=== PATIENT | female | born 1995 | race Caucasian/White ===

== ENCOUNTER 2017-04-24 14:13 | Emergency (ER) | payer OTHER ==
[~2017-04-24] VITALS: Ht 165.1 cm; Wt 58.1 kg
[2017-04-24] MEDS ORDERED: IBUPROFEN 600 MG TABLET PO ONE (14:45)
[2017-04-24] MEDS ORDERED: IBUPROFEN 600 MG TABLET ONE (15:11)
[2017-04-24 15:37] LABS: *URINE HCG, QUAL NEGATIVE (NEGATIVE)
[2017-04-24 15:38] LABS: *BILIRUBIN,URIN NEGATIVE (NEGATIVE); *BLOOD, URINE 2+ (NEGATIVE); *CLARITY,URINE CLEAR (CLEAR); *COLOR,URINE LIGHT YELLOW (YELLOW); *KETONES,URINE NEGATIVE (NEGATIVE); *PROTEIN,URINE NEGATIVE (NEGATIVE); *UROBILINOGEN,URINE 0.2 E.U./dl (NORMAL); LEUKOCYTE ESTERASE ,URINE NEGATIVE (NEGATIVE); NITRITE, URINE NEGATIVE (NEGATIVE); PH,URINE 5.5 (5.0-8.0); UGLUCOSE NEGATIVE (NEGATIVE)
[2017-04-24] MEDS ORDERED: ACETAMINOPHEN 325 MG TABLET PO ONE (15:45)
[2017-04-24 16:05] LABS: BACTERIA,URINE NONE SEEN /HPF (NONE SEEN); SQUAMOUS EPITHELIAL CELL,UR MODERATE /HPF (NONE SEEN); WBC,URINE 0-3 /HPF (0-3)
[2017-04-24] MEDS ORDERED: ACETAMINOPHEN ES 500 MG TABLET ONE (16:12)
--- NOTE | 2017-04-24 16:40 | NUR ---
MSE COMPLETED, PT D/'D HOME, ACI,WORK NOTE GIVEN. PT GOT DRESSED AND AMBULATED W/O DIFF/TOOK ALL BELONGINGS.
[2017-04-24 16:41] VITALS: BP 115/61
== END 2017-04-24 16:42 | disposition home or self-care (01) ==
LOC: ER 14:13
DX: J09.X2 Influenza due to identified novel influenza A virus with other respiratory manifestations (principal)
CPT/HCPCS: 36415; 71010; 81001; 84703; 86403; 87070; 87400; 99285; A4663